=== PATIENT | female | born 1935 | race Caucasian/White ===

== ENCOUNTER → 2021-09-09 | Outpatient (CLI) | payer MEDICARE | END | disposition home or self-care (01) | LOC: RAH 14:53 | PROVIDERS: ATTEND Internal Medicine Critical Care Medicine | DX: R22.41 Localized swelling, mass and lump, right lower limb (principal) | CPT/HCPCS: 93971 ==

== ENCOUNTER 2021-09-12 09:33 | Emergency (ER) | payer MEDICARE ==
[~2021-09-12] VITALS: Ht 157.5 cm; Wt 83.9 kg
[2021-09-12 10:20] LABS: BASOPHILS % (AUTO) 0.4 % (0.0-5.0); EOSINOPHILS % (AUTO) 1.8 % (0.0-8.0); HEMATOCRIT 42.4 % (36-48); MEAN CORPUSCULAR HEMOGLOBIN 27.3 pg (27.0-33.0); MEAN CORPUSCULAR HGB CONC 31.1 g/dL (32.0-36.0); MEAN CORPUSCULAR VOLUME 87.8 fL (79-99); MONOCYTES % (AUTO) 6.9 % (3.0-13.0); NEUTROPHILS % (AUTO) 72.2 % (40.0-77.0); PLATELET COUNT (AUTO) 292 K/uL (130-400); RED BLOOD CELL COUNT(AUTO) 4.83 MIL/uL (4.00-5.50); RED CELL DISTRIBUTION WIDTH 12.6 % (11.0-15.5); WHITE BLOOD COUNT (AUTO) 11.6 K/uL (4.8-10.8)
[2021-09-12 10:33] LABS: CREATININE 1.4 mg/dL (0.5-1.5); POTASSIUM 4.4 mmol/L (3.5-5.1)
[2021-09-12 10:45] LABS: ALBUMIN 3.1 g/dL (3.5-5.0); BILIRUBIN,TOTAL 0.5 mg/dL (0.2-1.0); TOTAL PROTEIN, SERUM 7.7 g/dL (6.0-8.3)
[2021-09-12] MEDS ORDERED: CLINDAMYCIN IVPB 600MG/50ML 50 ML IV ONE (10:53)
[2021-09-12] MEDS ORDERED: CLINDAMYCIN IVPB 600MG/50ML 50 ML IV SCH (11:00)
[2021-09-12 11:09] LABS: APPEARANCE,URINE Clear (CLEAR); BILIRUBIN,URINE Negative (NEGATIVE); COLOR,URINE Yellow (YELLOW); GLUCOSE, URINE (UA) Negative (NEGATIVE); KETONES,URINE Negative (NEGATIVE); LEUKOCYTE ESTERASE ,URINE Trace (NEGATIVE); NITRATE,URINE Negative (NEGATIVE); OCCULT BLOOD,URINE Negative (NEGATIVE); PROTEIN,URINE Negative (NEGATIVE); UROBILINOGEN,URINE 0.2 mg/dL (0.2-1.0)
[2021-09-12] MEDS ORDERED: CLIN-141 PO ×2 (11:31→12:12)
[2021-09-12 11:49] LABS: BACTERIA,URINE Few /HPF (None Seen); RBC,URINE 0-1 /HPF (0-1); WBC,URINE 0-1 /HPF (0-1)
[2021-09-12 12:16] VITALS: BP 120/97
[2021-09-14] MEDS ORDERED: GABA300S PO (08:59)
[2021-09-14] MEDS ORDERED: LEVO88CA4 PO (08:59)
[2021-09-14] MEDS ORDERED: TRAM50TA4 PO (08:59)
[2021-09-14] MEDS ORDERED: LOSA100T58 PO (08:59)
[2021-09-18] MEDS ORDERED: IBUP-2784 PO (12:53)
== END 2021-09-12 12:19 | disposition home or self-care (01) ==
LOC: EDH 09:33
DX: L03.115 Cellulitis of right lower limb (principal); I10 Essential (primary) hypertension
CPT/HCPCS: 36415; 80053; 81001; 85025; 93971; 96365; 99284; J3490